=== PATIENT | female | born 1970 | race Caucasian/White ===

== ENCOUNTER 2016-08-08 12:17 | Emergency (ER) | payer OTHER ==
[~2016-08-08 12:17] MED LIST: CHILDRENS CHEWA81 MG PO; KLONOPIN0.5 MG PO; MELOXICAM15 MG PO; ZOLOFT100 MG PO
== END 2016-08-08 14:22 | disposition home or self-care (01) ==
LOC: ER 12:17
DX: M79.1 Myalgia (principal); J32.9 Chronic sinusitis, unspecified; M51.36 Other intervertebral disc degeneration, lumbar region; V86.69XA Passenger of other special all-terrain or other off-road motor vehicle injured in nontraffic accident, initial encounter; Z79.899 Other long term (current) drug therapy
CPT/HCPCS: 70486; 71250; 72131; 96372; 99283-25

== ENCOUNTER 2016-08-17 19:14 | Emergency (ER) | payer OTHER | END 2016-08-17 20:35 | disposition home or self-care (01) | LOC: ER 19:14 | PROC: 3E0234Z Introduction of Serum, Toxoid and Vaccine into Muscle, Percutaneous Approach (ICD-10-PCS; principal; 2016-08-17) | DX: S61.011A Laceration without foreign body of right thumb without damage to nail, initial encounter (principal); W26.8XXA Contact with other sharp object(s), not elsewhere classified, initial encounter; Y92.009 Unspecified place in unspecified non-institutional (private) residence as the place of occurrence of the external cause; Z23 Encounter for immunization; Z79.899 Other long term (current) drug therapy | CPT/HCPCS: 12001; 90471; 90715; 99070; 99282-25 ==